=== PATIENT | male | born 1995 | race Native Hawaiian/Other Pacific Islander ===

== ENCOUNTER 2019-07-12 12:39 | Emergency (ER) | payer OTHER ==
[~2019-07-12] VITALS: Ht 170.2 cm; Wt 59.0 kg
[2019-07-12 12:46] VITALS: TEMP 98.6
[2019-07-12 13:15] LABS: PLATELET COUNT 278 K/uL (142-355)
[2019-07-12 13:25] LABS: POTASSIUM 3.6 mmol/L (3.6-5.2); SODIUM 140 mmol/L (136-145)
[2019-07-12 13:43] LABS: PARTIAL THROMBOPLASTIN TIME 25.7 SECONDS (24.5-33.6)
[2019-07-12 14:06] VITALS: BP 101/54
== END 2019-07-12 14:06 | disposition home or self-care (01) ==
LOC: ED 12:39
PROVIDERS: Hospitalist
DX: R07.89 Other chest pain (principal); G43.909 Migraine, unspecified, not intractable, without status migrainosus
CPT/HCPCS: 36415; 80053; 82550; 83880; 84484; 85027; 85379; 85610; 85730; 93005; 96374; 96375; 99284; J1885; J2405